=== PATIENT | male | born 1990 | race Caucasian/White ===

== ENCOUNTER 2018-01-22 17:50 | Emergency (ER) | payer BC ==
--- NOTE | 2018-01-22 19:17 | EDPHYS ---
Physician Documentation [facility] Name: Larry Delacruz Age: 27 yrs Sex: Male : 1990 Arrival Date: 01/22/2018 Time: 17:55 Bed 25 Private MD: None, None ED Physician Carlitos Gross HPI: 01/22 19:18 This 27 yrs old Male presents to ER via Ambulatory with complaints of Left pm1 Groin Pain. 19:18 The patient or guardian reports pain. that occurred at home, sustained from Onset of pm1 exercise There is no obvious deformity, The patient is able to self ambulate. Patient is not able to bear weight. There is no radiation of the patient's discomfort. The complaints affect the left groin. Onset: The symptoms/episode began/occurred 2 day(s) ago. Modifying factors: The symptoms are alleviated by Rest, the symptoms are aggravated by flexion and extension of left hip. Associated signs and symptoms: Pertinent negatives: abdominal pain, diarrhea, dysuria, fever, nausea, vomiting, Flank pain. No fall. No trauma. Patient has not worked out for a very long time and he started exercising. Patient started doing squats and running. Patient with complaints of left groin pain. Historical: - Allergies: 18:12 No Known Allergies; aj - Home Meds: 18:12 None [Active]; aj - PMHx: 18:12 None; aj - PSHx: 18:12 Hernia repair; aj - Immunization history:: Adult Immunizations up to date. - Social history:: Smoking status: Patient/guardian denies using tobacco. - Ebola Screening: : No symptoms or risks identified at this time. ROS: 19:18 Constitutional: Negative for fever, chills, and weight loss, Cardiovascular: Negative pm1 for chest pain, palpitations, and edema, Respiratory: Negative for shortness of breath, cough, wheezing, and pleuritic chest pain, Abdomen/GI: Negative for abdominal pain, nausea, vomiting, diarrhea, and constipation, Back: Negative for injury and pain, : Negative for injury, bleeding, discharge, and swelling, Skin: Negative for injury, rash, and discoloration. 19:18 Neuro: Negative for headache, weakness, numbness, tingling, and seizure. 19:18 MS/extremity: Positive for left groin pain with movement of his left hip, Negative for decreased range of motion, deformity, swelling. 19:18 Neuro: Exam: 19:18 Constitutional: This is a well developed, well nourished patient who is awake, alert, pm1 and in no acute distress. Head/Face: Normocephalic, atraumatic. Chest/axilla: Normal chest wall appearance and motion. Nontender with no deformity. No lesions are appreciated. Cardiovascular: Regular rate and rhythm with a normal S1 and S2. No gallops, murmurs, or rubs. Normal PMI, no JVD. No pulse deficits. Respiratory: Lungs have equal breath sounds bilaterally, clear to auscultation and percussion. No rales, rhonchi or wheezes noted. No increased work of breathing, no retractions or nasal flaring. Abdomen/GI: Soft, non-tender, with normal bowel sounds. No distension or tympany. No guarding or rebound. No evidence of tenderness throughout. Back: No spinal tenderness. No costovertebral tenderness. Full range of motion. Skin: Warm, dry with normal turgor. Normal color with no rashes, no lesions, and no evidence of cellulitis. 19:18 : Male external genitalia: normal, Circumcision noted. No inguinal or femoral hernia present on physical examination on visualization and palpation with Valsalva maneuvers . 19:18 Musculoskeletal/extremity: Extremities: grossly normal except: noted in the left femoral area: tenderness, There is no evidence of decreased ROM, deformity, Inguinal hernia, ROM: intact in all extremities, Circulation is intact in all extremities. Sensation intact. Weight bearing: able to fully bear weight, without difficulty. 19:18 Neuro: Orientation: is normal, Mentation: is normal, Motor: moves all fours, Sensation: is normal, no obvious gross deficits, Gait: is steady, at a normal pace, without difficulty. Vital Signs: 18:12 BP 148 / 85; Pulse 57; Resp 19; Temp 98.7; Pulse Ox 97% on R/A; Weight 99.79 kg; Height aj 77 in. (195.58 cm); 19:23 BP 127 / 79; Pulse 70; Resp 18; Pulse Ox 97% on R/A; tl2 18:12 Body Mass Index 26.09 (99.79 kg, 195.58 cm) aj MDM: 18:57 Patient medically screened. pm1 19:15 Data reviewed: vital signs. Data interpreted: Pulse oximetry: on room air is 97 %. pm1 Interpretation: normal. Counseling: I had a detailed discussion with the patient and/or guardian regarding: the historical points, exam findings, and any diagnostic results supporting the discharge/admit diagnosis, the need for outpatient follow up, to return to the emergency department if symptoms worsen or persist or if there are any questions or concerns that arise at home. Administered Medications: No medications were administered Disposition: 22:17 Co-signature as Attending Physician, Carlitos Gross MD I agree with the assessment and kdr plan of care. Disposition: 01/22/18 19:16 Discharged to Home. Impression: Strain of adductor muscle, fascia and tendon of left thigh. - Condition is Stable. - Discharge Instructions: Groin Strain. - Prescriptions for Naprosyn 500 mg Oral Tablet - take 1 tablet by ORAL route 2 times per day take with food; 30 tablet. Cyclobenzaprine 10 mg Oral Tablet - take 1 tablet by ORAL route every 8 hours As needed; 30 tablet. - Medication Reconciliation Form, Thank You Letter, Prescription Opioid Use form. - Follow up: Emergency Department; When: As needed; Reason: Worsening of condition. Follow up: Private Physician; When: 2 - 3 days; Reason: Recheck today's complaints, Continuance of care, Re-evaluation by your physician. - Problem is new. - Symptoms have improved. Signatures: Ivett Denny RN Carlitos Broderick MD MD [facility] Artemio Luu, KRISTOFER STOCKROOM SUPERVISOR pm1 Marcelle Matthews RN RN tl2 Corrections: (The following items were deleted from the chart) 19:25 19:16 01/22/2018 19:16 Discharged to Home. Impression: Strain of adductor muscle, tl2 fascia and tendon of left thigh. Condition is Stable. Forms are Medication Reconciliation Form, Thank You Letter, Antibiotic Education, Prescription Opioid Use. Follow up: Emergency Department; When: As needed; Reason: Worsening of condition. Follow up: Private Physician; When: 2 - 3 days; Reason: Recheck today's complaints, Continuance of care, Re-evaluation by your physician. Problem is new. Symptoms have improved. pm1
--- NOTE | 2018-01-22 19:17 | ER ---
Nurse's Notes [facility] Name: Larry Delacruz Age: 27 yrs Sex: Male : 1990 Arrival Date: 01/22/2018 Time: 17:55 Bed 25 Private MD: None, None Diagnosis: Strain of adductor muscle, fascia and tendon of left thigh Presentation: 01/22 18:12 Presenting complaint: Patient states: Left side groin pain that started 2 days ago. aj Transition of care: patient was not received from another setting of care. Onset of symptoms was January 20, 2018. Care prior to arrival: None. 18:12 Method Of Arrival: Ambulatory 18:12 Acuity: HERMILA 4 aj 19:02 Risk Assessment: Do you want to hurt yourself or someone else? Patient reports no tl2 desire to harm self or others. Initial Sepsis Screen: Does the patient meet any 2 criteria?. Initial Sepsis Screen: Does the patient meet any 2 criteria? No. Patient's initial sepsis screen is negative. Does the patient have a suspected source of infection? No. Patient's initial sepsis screen is negative. Triage Assessment: 18:12 General: Appears in no apparent distress. comfortable, Behavior is calm, cooperative, aj appropriate for age. Pain: Complains of pain in groin and left femoral area. Neuro: Level of Consciousness is awake, alert, obeys commands, Oriented to person, place, time, situation, Appropriate for age. Respiratory: Airway is patent Respiratory effort is even, unlabored, Respiratory pattern is regular, symmetrical. Derm: Skin is intact, is healthy with good turgor, Skin is pink, warm \T\ dry. normal. Historical: - Allergies: 18:12 No Known Allergies; aj - Home Meds: 18:12 None [Active]; aj - PMHx: 18:12 None; aj - PSHx: 18:12 Hernia repair; aj - Immunization history:: Adult Immunizations up to date. - Social history:: Smoking status: Patient/guardian denies using tobacco. - Ebola Screening: : No symptoms or risks identified at this time. Screenin:01 Abuse screen: Denies threats or abuse. Nutritional screening: No deficits noted. tl2 Tuberculosis screening: No symptoms or risk factors identified. Fall Risk None identified. Assessment: 19:01 General: Appears in no apparent distress. comfortable, Behavior is calm, cooperative, tl2 appropriate for age. Pain: Complains of pain in left femoral area and groin Pain does not radiate. Quality of pain is described as aching. Neuro: Level of Consciousness is awake, alert, obeys commands, Oriented to person, place, time, situation. Cardiovascular: Denies chest pain. Respiratory: Airway is patent Respiratory effort is even, unlabored, Respiratory pattern is regular, symmetrical. GI: No signs and/or symptoms were reported involving the gastrointestinal system. : Denies burning with urination. Derm: Skin is pink, warm \T\ dry. 19:23 Reassessment: Pt verbalized understanding of discharge instructions, need for follow up tl2 and prescription usage. Vital Signs: 18:12 BP 148 / 85; Pulse 57; Resp 19; Temp 98.7; Pulse Ox 97% on R/A; Weight 99.79 kg; Height aj 77 in. (195.58 cm); 19:23 BP 127 / 79; Pulse 70; Resp 18; Pulse Ox 97% on R/A; tl2 18:12 Body Mass Index 26.09 (99.79 kg, 195.58 cm) ED Course: 17:55 Patient arrived in ED. mr 17:55 None, None is Private Physician. mr 18:12 Triage completed. aj 18:12 Arm band placed on left wrist. Patient placed in an exam room. aj 18:36 Artemio Luu NP is PHCP. pm1 18:36 Carlitos Gross MD is Attending Physician. pm1 19:01 Patient has correct armband on for positive identification. Placed in gown. Bed in low tl2 position. Call light in reach. Side rails up X 1. 19:23 Marcelle Matthews, DEN is Primary Nurse. tl2 19:23 No provider procedures requiring assistance completed. Patient did not have IV access tl2 during this emergency room visit. Administered Medications: No medications were administered Outcome: 19:16 Discharge ordered by . pm1 19:23 Discharged to home ambulatory. tl2 19:23 Condition: stable 19:23 Discharge instructions given to patient, Instructed on discharge instructions, follow up and referral plans. medication usage, Demonstrated understanding of instructions, follow-up care, medications, Prescriptions given X 2. 19:25 Patient left the ED. tl2 Signatures: Ivett Denny RN RN Thania Marcos mr Jus, Artemio, WHEEL TRUING MACHINE TENDER WHEEL TRUING MACHINE TENDER pm1 Marcelle Matthews, DEN RN tl2
== END 2018-01-22 19:25 | disposition home or self-care (01) ==
LOC: ER 17:50
DX: S76.212A Strain of adductor muscle, fascia and tendon of left thigh, initial encounter (principal); Y93.B9 Activity, other involving muscle strengthening exercises; Y92.009 Unspecified place in unspecified non-institutional (private) residence as the place of occurrence of the external cause; Y99.8 Other external cause status
CPT/HCPCS: 99282

== ENCOUNTER 2018-01-28 22:16 | Emergency (ER) | payer BC ==
[2018-01-28] MEDS ORDERED: NA CHLORIDE 0.9% 1,000 ML ONE (22:51)
[2018-01-28 23:03] LABS: Absolute Lymphocytes (CBC) 1.9 K/uL (0.7-4.9); Absolute Monocytes 0.8 K/uL (0.1-1.3); Absolute Neutrophil 6.9 K/uL (1.8-8.0); Basophils % 0.8 % (0-1.3); Eosinophils % 0.8 % (0-4.4); Hematocrit 48.6 % (39.6-49.0); Lymphocytes % 19.2 % (15.3-44.8); MCH 31.5 pg (27.0-35.0); MCV 92.7 fL (80-100); MPV 8.8 fL (7.6-11.3); Monocytes % 8.1 % (3.3-12.3); RBC Red Blood Cell Count 5.24 M/uL (4.33-5.43)
[2018-01-28 23:12] LABS: Protime INR 1.01
[2018-01-28 23:14] LABS: Bicarbonate 27 mEq/L (21-31); Glucose Level 111 mg/dL (65-120); Potassium 3.6 mEq/L (3.6-5.0); Sodium Level 141 mEq/L (135-145)
[2018-01-28 23:20] LABS: ALT/SGPT 15 IU/L (10-60); AST/SGOT 16 IU/L (10-42); Albumin 4.3 g/dL (3.2-5.5); Alkaline Phosphatase 65 IU/L (42-121); BUN Blood Urea Nitrogen 11 mg/dL (6-20); Bilirubin Direct 0.1 mg/dL (0-0.2); Bilirubin Total 0.5 mg/dL (0.3-1.2)
[2018-01-28 23:33] LABS: Alcohol Serum/Plasma 234 mg/dl
[2018-01-29 00:17] LABS: Urine Blood NEGATIVE (NEG); Urine Glucose NEGATIVE (NEG); Urine Protein NEGATIVE (NEG); Urine pH 5.5 (5.0-7.0)
[2018-01-29 00:49] LABS: Barbiturates NEGATIVE (NEGATIVE); Benzodiazepines NEGATIVE (NEGATIVE); Cocaine NEGATIVE (NEGATIVE); METHAMPHETAM NEGATIVE (NEGATIVE); Opiates NEGATIVE (NEGATIVE); Phencyclidine NEGATIVE (NEGATIVE); THC Cannibis NEGATIVE (NEGATIVE)
--- NOTE | 2018-01-29 03:50 | EDPHYS ---
Physician Documentation [facility] Name: Larry Delacruz Age: 27 yrs Sex: Male : 1990 Arrival Date: 01/28/2018 Time: 22:17 Bed 4 Private MD: ED Physician Scott Aleman HPI: 01/28 23:00 This 27 yrs old Male presents to ER via EMS with complaints of ETOH Abuse. pm1 23:00 The patient presents to the emergency department alcohol intoxication. Associated signs pm1 and symptoms: The patient has no apparent associated signs or symptoms. The patient has not recently seen a physician. Patient went out drinking with his coworkers and reports drinking only beer. Patient was found by bystander on the sidewalk sleeping. Patient reports that his coworkers must have dropped him off near his house. He had planned on walking home but fell asleep on the sidewalk. Patient denies any pain. Historical: - Allergies: 22:23 No Known Allergies; tl2 - Home Meds: 22:23 None [Active]; tl2 - PMHx: 22:23 None; tl2 - PSHx: 22:23 Hernia repair; tl2 - Immunization history:: Adult Immunizations up to date. - Social history:: Smoking status: Patient/guardian denies using tobacco. - Ebola Screening: : No symptoms or risks identified at this time. ROS: 23:00 Constitutional: Negative for fever, chills, and weight loss, Eyes: Negative for injury, pm1 pain, redness, and discharge, ENT: Negative for injury, pain, and discharge, Neck: Negative for injury, pain, and swelling, Cardiovascular: Negative for chest pain, palpitations, and edema, Respiratory: Negative for shortness of breath, cough, wheezing, and pleuritic chest pain, Abdomen/GI: Negative for abdominal pain, nausea, vomiting, diarrhea, and constipation, Back: Negative for injury and pain, : Negative for injury, bleeding, discharge, and swelling, MS/Extremity: Negative for injury and deformity, Skin: Negative for injury, rash, and discoloration. 23:00 Neuro: Negative for headache, weakness, numbness, tingling, and seizure. Exam: 23:00 Constitutional: This is a well developed, well nourished patient who is awake, alert, pm1 and in no acute distress. Head/Face: Normocephalic, atraumatic. Eyes: Pupils equal round and reactive to light, extra-ocular motions intact. Lids and lashes normal. Conjunctiva and sclera are non-icteric and not injected. Cornea within normal limits. Periorbital areas with no swelling, redness, or edema. ENT: Nares patent. No nasal discharge, no septal abnormalities noted. Tympanic membranes are normal and external auditory canals are clear. Oropharynx with no redness, swelling, or masses, exudates, or evidence of obstruction, uvula midline. Mucous membranes moist. Neck: Trachea midline, no thyromegaly or masses palpated, and no cervical lymphadenopathy. Supple, full range of motion without nuchal rigidity, or vertebral point tenderness. No Meningismus. Chest/axilla: Normal chest wall appearance and motion. Nontender with no deformity. No lesions are appreciated. Cardiovascular: Regular rate and rhythm with a normal S1 and S2. No gallops, murmurs, or rubs. Normal PMI, no JVD. No pulse deficits. Respiratory: Lungs have equal breath sounds bilaterally, clear to auscultation and percussion. No rales, rhonchi or wheezes noted. No increased work of breathing, no retractions or nasal flaring. Abdomen/GI: Soft, non-tender, with normal bowel sounds. No distension or tympany. No guarding or rebound. No evidence of tenderness throughout. Back: No spinal tenderness. No costovertebral tenderness. Full range of motion. Skin: Warm, dry with normal turgor. Normal color with no rashes, no lesions, and no evidence of cellulitis. MS/ Extremity: Pulses equal, no cyanosis. Neurovascular intact. Full, normal range of motion. 23:00 Neuro: Orientation: is normal, Motor: is normal, moves all fours. Vital Signs: 22:23 BP 155 / 75; Pulse 99; Resp 18; Temp 98.2(O); Pulse Ox 95% on R/A; Weight 99.79 kg; tl2 Height 6 ft. 5 in. (195.58 cm); Pain 0/10; 23:25 BP 125 / 62; Pulse 67; Resp 15; Pulse Ox 95% on R/A; rv 23:59 BP 110 / 54; Pulse 71; Resp 18; Pulse Ox 97% on R/A; tl2 06/07 01:21 BP 106 / 49; Pulse 70; Resp 18; Pulse Ox 97% on R/A; tl2 03:04 BP 126 / 70; Pulse 81; Resp 18; Pulse Ox 100% on R/A; tl2 04:02 BP 134 / 85; Pulse 89; Resp 18; Pulse Ox 98% on R/A; tl2 01/28 22:23 Body Mass Index 26.09 (99.79 kg, 195.58 cm) tl2 MDM: 01/28 22:47 Patient medically screened. pm1 01/29 01:31 Data reviewed: vital signs. Data interpreted: Pulse oximetry: on room air is 97 %. pm1 Interpretation: normal. 03:49 Counseling: I had a detailed discussion with the patient and/or guardian regarding: the pm1 historical points, exam findings, and any diagnostic results supporting the discharge/admit diagnosis, lab results, radiology results, to return to the emergency department if symptoms worsen or persist or if there are any questions or concerns that arise at home. 01/28 22:48 Order name: Acetaminophen; Complete Time: 01:03 pm01/28 22:48 Order name: Basic Metabolic Panel; Complete Time: 01:03 pm01/28 22:48 Order name: CBC with Diff; Complete Time: 01:03 pm01/28 22:48 Order name: ETOH Level; Complete Time: 01:03 pm01/28 22:48 Order name: Hepatic Function; Complete Time: 01:03 pm01/28 22:48 Order name: PT-INR; Complete Time: 01:03 pm01/28 22:48 Order name: Ptt, Activated; Complete Time: 01:03 pm01/28 22:48 Order name: Salicylate; Complete Time: 01:03 pm01/28 22:48 Order name: Urine Drug Screen; Complete Time: 01:03 pm01/28 22:48 Order name: EKG; Complete Time: 22:49 pm01/28 22:48 Order name: EKG - Nurse/Tech; Complete Time: 22:55 pm01/29 00:08 Order name: Urine Dipstick--Ancillary (enter results); Complete Time: 01:03 ms 01/29 01:55 Order name: CT Head Brain wo Cont pm1 01/28 22:48 Order name: IV Saline Lock; Complete Time: 22:55 pm1 01/28 22:48 Order name: Labs collected and sent; Complete Time: 22:55 pm1 01/28 22:48 Order name: Urine Dipstick-Ancillary (obtain specimen); Complete Time: 23:58 pm1 Administered Medications: 01/28 22:55 Drug: NS 0.9% 1000 ml Route: IV; Rate: 1000 ml; Site: right antecubital; tl2 01/29 04:04 Follow up: IV Status: Completed infusion; IV Intake: 1000ml tl2 Point of Care Testing: Blood Glucose: 01/28 22:23 Blood Glucose: 108 mg/dL; tl2 Ranges: Critical Glucose Levels:Adult <50 mg/dl or >400 mg/dl <40 mg/dl or >180 mg/dl Disposition: 01/29 07:12 Co-signature as Attending Physician, Scott Aleman MD I agree with the assessment and vickey plan of care. Disposition: 01/29/18 03:49 Discharged to Home. Impression: Alcohol abuse. - Condition is Stable. - Discharge Instructions: Alcohol and Drug Addiction, Finding Treatment. - Medication Reconciliation Form, Thank You Letter form. - Follow up: Emergency Department; When: As needed; Reason: Worsening of condition. Follow up: Private Physician; When: As needed; Reason: Recheck today's complaints, Continuance of care, Re-evaluation by your physician. - Problem is new. - Symptoms have improved. Signatures: Dispatcher [employer] Scott Lopes MD MD cha Marinas, Patrick, COMMUNICATIONS DEPARTMENT CHAIRPERSON COMMUNICATIONS DEPARTMENT CHAIRPERSON pm1 Marcelle Matthews RN RN tl2 Corrections: (The following items were deleted from the chart) 04:04 03:49 01/29/2018 03:49 Discharged to Home. Impression: Alcohol abuse. Condition is tl2 Stable. Forms are Medication Reconciliation Form, Thank You Letter, Antibiotic Education, Prescription Opioid Use. Follow up: Emergency Department; When: As needed; Reason: Worsening of condition. Follow up: Private Physician; When: As needed; Reason: Recheck today's complaints, Continuance of care, Re-evaluation by your physician. Problem is new. Symptoms have improved. pm1
--- NOTE | 2018-01-29 03:50 | ER ---
Nurse's Notes [facility] Name: Larry Delacruz Age: 27 yrs Sex: Male : 1990 Arrival Date: 01/28/2018 Time: 22:17 Bed 4 Private MD: Diagnosis: Alcohol abuse Presentation: 01/28 22:19 Presenting complaint: EMS states: Pt found on side of road, unconscious. Pt began to tl2 wake up en route and pt was AOx4 on arrival to ED. Pt cooperative, denies pain. Transition of care: patient was not received from another setting of care. Onset of symptoms was January 28, 2018. Risk Assessment: Do you want to hurt yourself or someone else? Patient reports no desire to harm self or others. Initial Sepsis Screen: Does the patient meet any 2 criteria? No. Patient's initial sepsis screen is negative. Does the patient have a suspected source of infection? No. Patient's initial sepsis screen is negative. Care prior to arrival: None. 22:19 Method Of Arrival: EMS: [facility] tl2 22:19 Acuity: HERMILA 3 tl2 Triage Assessment: 22:23 General: Appears in no apparent distress. comfortable, Behavior is calm, cooperative, tl2 appropriate for age. Pain: Denies pain. Neuro: Level of Consciousness is awake, alert, obeys commands, Oriented to person, place, time, situation. Cardiovascular: Denies chest pain. Respiratory: Airway is patent Respiratory effort is even, unlabored, Respiratory pattern is regular, symmetrical. GI: No signs and/or symptoms were reported involving the gastrointestinal system. : No signs and/or symptoms were reported regarding the genitourinary system. Derm: Skin is pink, warm \T\ dry. 22:23 Neuro: Pupils are PERRLA, dilated. tl2 Historical: - Allergies: 22:23 No Known Allergies; tl2 - Home Meds: 22:23 None [Active]; tl2 - PMHx: 22:23 None; tl2 - PSHx: 22:23 Hernia repair; tl2 - Immunization history:: Adult Immunizations up to date. - Social history:: Smoking status: Patient/guardian denies using tobacco. - Ebola Screening: : No symptoms or risks identified at this time. Screenin:25 Abuse screen: Denies threats or abuse. Nutritional screening: No deficits noted. tl2 Tuberculosis screening: No symptoms or risk factors identified. Fall Risk None identified. Assessment: 22:45 General: see triage assessment. tl2 23:59 Reassessment: Patient appears in no apparent distress at this time. Pt encouraged to tl2 give urine sample, but falls asleep quickly after waking up and saying he would give one. Pt gave sample after I stayed in room. 01/29 01:21 Reassessment: Patient appears in no apparent distress at this time. Patient and/or tl2 family updated on plan of care and expected duration. Pain level reassessed. Pt appears to be sleeping, RR even and unlabored. 01:46 Reassessment: BRAND ADVOCATE spoke with pt and stated he would let him sleep for a few hours. VS bp remain stable. Will reevaluate for discharge. 03:00 Reassessment: Patient appears in no apparent distress at this time. Pt sleeping, VSS. tl2 04:02 Reassessment: Patient appears in no apparent distress at this time. Patient and/or tl2 family updated on plan of care and expected duration. Pain level reassessed. Patient is alert, oriented x 3, equal unlabored respirations, skin warm/dry/pink. Pt awake and oriented x4, states he is ready to go. Pt has a steady gate. Pt verbalized understanding of discharge instructions, need for follow up and safety practices. Vital Signs: 01/28 22:23 BP 155 / 75; Pulse 99; Resp 18; Temp 98.2(O); Pulse Ox 95% on R/A; Weight 99.79 kg; tl2 Height 6 ft. 5 in. (195.58 cm); Pain 0/10; 23:25 BP 125 / 62; Pulse 67; Resp 15; Pulse Ox 95% on R/A; rv 23:59 BP 110 / 54; Pulse 71; Resp 18; Pulse Ox 97% on R/A; tl2 01/29 01:21 BP 106 / 49; Pulse 70; Resp 18; Pulse Ox 97% on R/A; tl2 03:04 BP 126 / 70; Pulse 81; Resp 18; Pulse Ox 100% on R/A; tl2 04:02 BP 134 / 85; Pulse 89; Resp 18; Pulse Ox 98% on R/A; tl2 01/28 22:23 Body Mass Index 26.09 (99.79 kg, 195.58 cm) tl2 ED Course: 01/28 22:17 Patient arrived in ED. tl2 22:18 Marcelle Matthews, DEN is Primary Nurse. tl2 22:22 Triage completed. tl2 22:23 Arm band placed on right wrist. tl2 22:25 Patient has correct armband on for positive identification. Bed in low position. Call tl2 light in reach. Side rails up X2. 22:44 Artemio Luu NP is PHCP. pm1 22:44 Scott Aleman MD is Attending Physician. pm1 22:45 Inserted saline lock: 20 gauge in right antecubital area, using aseptic technique. tl2 Blood collected. 01/29 03:[address] via wheelchair. kw1 03:26 CT completed. Patient tolerated procedure well. Patient moved back from CT. kw1 03:28 CT Head Brain wo Cont In Process Unspecified. EDMS 04:02 No provider procedures requiring assistance completed. IV discontinued, intact, tl2 bleeding controlled, No redness/swelling at site. Pressure dressing applied. Administered Medications: 01/28 22:55 Drug: NS 0.9% 1000 ml Route: IV; Rate: 1000 ml; Site: right antecubital; tl2 01/29 04:04 Follow up: IV Status: Completed infusion; IV Intake: 1000ml tl2 Point of Care Testing: Blood Glucose: 01/28 22:23 Blood Glucose: 108 mg/dL; tl2 Ranges: Intake: 01/29 04:04 IV: 1000ml; Total: 1000ml. tl2 Outcome: 03:49 Discharge ordered by . pm1 04:02 Discharged to home ambulatory, pt given number to call Taxi service tl2 04:02 Condition: stable 04:02 Discharge instructions given to patient. 04:02 Instructed on discharge instructions, follow up and referral plans. safety practices. 04:04 Patient left the ED. tl2 Signatures: Dispatcher [employer] EDMS Artemio Luu NP BRAND ADVOCATE pm1 Marcelle Matthews RN RN tl2 Keegan Portillo RN RN bp Elsie Gross kw1 Mitchell Knox RN RN rv Corrections: (The following items were deleted from the chart) 01/28 23:59 22:23 General: Appears in no apparent distress. comfortable, Behavior is calm, tl2 cooperative, appropriate for age, tl2
--- NOTE | 2018-01-29 08:40 | RAD REPORT ---
EXAM DESCRIPTION: CT - Head Brain Wo Cont - 01/29/2018 6:05 am CLINICAL HISTORY: Altered mental status, found down on ground A preliminary written report was provided at the time of the study, and the report was reviewed prio r to final dictation. COMPARISON: None. TECHNIQUE: Axial 5 mm thick images of the head were obtained without IV contrast. All CT scans are performed using dose optimization technique as appropriate and may include automated exposure control or mA/KV adjustment according to patient size. FINDINGS: No intracranial hemorrhage, mass, edema or shift of mid-line structures. No acute infarcti on changes seen. No abnormal extra-axial fluid collections. Ventricles are normal. Mastoid air cells and visualized portions of the paranasal sinuses are clear. No acute bony findings. IMPRESSION: Negative non-contrast CT head examination.
--- NOTE | 2018-01-30 07:25 | EKG ---
Test Date: 2018-01-28 Test Time: 22:38:07 Quotation Checker: ANUP MEASUREMENT RESULTS: Intervals: Rate: 92 AK: 182 QRSD: 90 QT: 356 QTc: 440 [place]: P: 63 AK: 182 QRS: 86 T: 57 INTERPRETIVE STATEMENTS: Normal sinus rhythm Possible Left atrial enlargement Early repolarization Borderline ECG No previous ECG available for comparison Electronically Signed On 01-30-18 07:20:14 CDT by Dominguez Meeks
== END 2018-01-29 04:04 | disposition home or self-care (01) ==
LOC: ER 22:16
DX: F10.10 Alcohol abuse, uncomplicated (principal)
CPT/HCPCS: 36415; 70450; 80048; 80076; 80307; 80320; 80329; 81003; 85025; 85610; 85730; 93005; 96360; 96361; 99284; J7030